=== PATIENT | female | born 1980 | race Caucasian/White ===

== ENCOUNTER → 2021-04-06 10:50 | Outpatient (BNVA) | payer OTHER, SELFPAY | PROVIDERS: Visit Provider Nurse Practitioner Women's Health | DX: R87.610 Atypical squamous cells of undetermined significance on cytologic smear of cervix (ASC-US) (principal); Z01.419 Encounter for gynecological examination (general) (routine) without abnormal findings; Z12.39 Encounter for other screening for malignant neoplasm of breast | CPT/HCPCS: 88175 ==

== ENCOUNTER 2021-07-09 05:27 | Emergency (ER) | payer OTHER, SELFPAY ==
[2021-07-09 05:29] VITALS: BP 157/81; PULSE 95; RESP 18; TEMP 36.9; O2SAT 100; BMI 23.8
--- NOTE | 2021-07-09 05:34 | XRR_ITS ---
PROCEDURE INFORMATION: Exam: XR Soft Tissue Neck Exam date and time: 07/09/2021 5:34 AM Age: 40 years old Clinical indication: Neck pain TECHNIQUE: Imaging protocol: XR of the soft tissues of the neck. COMPARISON: MR head wo con* [id number] 01/11/2018 10:55 AM FINDINGS: Airway: Normal. No abnormal narrowing. Soft tissues: Normal. Normal epiglottis. Bones/joints: Unremarkable. XR/XR soft tissue neck [id number] IMPRESSION: No acute findings.
--- NOTE | 2021-07-09 05:35 | W.ED.URI ---
HPI - URI/Sore Throat General: Chief Complaint: Upper Respiratory Infection Stated Complaint: THROAT SWELLING Time Seen by Provider: 07/09/21 05:34 Source: patient and EMS Mode of arrival: EMS Limitations: no limitations History of Present Illness: HPI Narrative: 40-year-old female states that she had a slight sore throat over the last day. She states that she took ibuprofen this morning at 4 AM and felt the pill got stuck in its caused to have worsening pain. States pain is actually improved now but her throat feels dry. She denies any fever. She denies any vomiting or diarrhea. Denies any difficulty breathing. Associated symptoms: Deny abdominal pain, chills, chest pain, diarrhea, fever(s), headache(s), nausea or vomiting Review of Systems Const: Denies: fever(s), chills, body aches or change in appetite Eyes: Denies: blurry vision or eye discomfort ENMT: Reports: throat pain Card: Denies: chest pain Resp: Denies: dyspnea GI: Denies: abdominal pain, nausea, vomiting or diarrhea : Denies: dysuria Musc: Denies: neck pain or back pain Skin/Breast: Denies: rash Neuro: Denies: headache(s) Psych: Denies: depression Mikel/Lymph: Denies: easy bruising All/Imm: Denies: urticaria PFSH ED PFSH: Medical History History of pre-eclampsia in 2 previous pregnancies No pertinent past medical history denies hx: htn, thyroid, dm, DVT/PE PCP: Clare Chaparro Surgical History No pertinent past surgical history Family History Father Thyroid disease Stroke Mother Diabetes Denies family history of Colon cancer Ovarian cancer Heart disease Hypercholesteremia Breast cancer Hypertension Uterine cancer Female Reproductive History: Date of last menstrual period: 07/09/21 Physical Exam Const: COMMON NORMALS: no acute distress, patient oriented x3 and healthy appearing HENMT: COMMON NORMALS: normocephalic and atraumatic HEAD & SCALP: normocephalic and atraumatic OTHER: There is clear with no erythema or signs of abscess no uvular deviation. Patient is having no problems handling her secretions. Neck exam has no masses or lymphadenopathy Eye: COMMON NORMALS: Equal, round and reactive pupils present and EOMs intact bilaterally PUPIL: Yes Equal, round and reactive pupils present Neck/C-Spine: COMMON NORMALS: full ROM and supple Chest: COMMONS NORMALS: normal inspection of the chest and normal palpation of entire chest wall Resp: COMMON NORMALS: normal respiratory effort, No retractions, No use of accessory muscles and clear to auscultation bilaterally AUSCULTATION: clear to auscultation bilaterally Cardio: COMMON NORMALS: regular rate, regular rhythm and No murmurs present (Cardio) RATE: regular rate RHYTHM: regular rhythm GI: COMMON NORMALS: Normal to inspection, nondistended, normoactive bowel sounds present, Soft to palpation, non-tender and no masses PALPATION: Yes Soft to palpation Extremity: COMMON NORMALS: normal to inspection and full ROM Neuro: COMMON NORMALS: patient oriented x3, moves all extremities and no focal motor deficits Psych: COMMON NORMALS: mental status grossly normal, Normal thought process present and cooperative THOUGHT PROCESS: Normal thought process present Skin: COMMON NORMALS: no rashes or lesions noted and no wounds GENERAL SKIN EXAM: no rashes or lesions noted Course Vital Signs: Vital signs: Vital Signs Temperature 98.4 F 07/09/21 05:55 Pulse Rate 79 07/09/21 05:55 Respiratory Rate 18 07/09/21 05:55 Blood Pressure 133/78 07/09/21 05:55 Pulse Oximetry 97 07/09/21 05:55 MDM - URI/Sore Throat MDM Narrative: Medical decision making narrative: Patient presents here with sore throat along with likely esophagitis. She is well-appearing here has no signs of abscess or strep. Patient feels improved and is stable for discharge. She is return for worsening and follow-up with her PCP in 3 to 5 days. Discharge Plan Discharge Patient Disposition: Home Clinical Impression: Throat pain, Esophagitis Condition: Stable Prescriptions: New Naprosyn 500 mg tablet 500 mg PO BID PRN (Reason: pain) Qty: 20 RF: 0 No Action hydroxyzine HCl 25 mg tablet 50 mg PO .h.s. PRNRF: 0 Discharge Orders: Discharge ED (Routine); Ordered 07/09/21 Ordered By: Korby Nory Discharge Diet: Advance as tolerated Discharge Activity: Resume usual activity Patient Instructions: Pharyngitis (ED) Coding Level of Care Code ED Guest Relation Officer for Jana Fwd Exam Comprehensive
[2021-07-09] MEDS: lidocaine 2% viscous 15 ML, aluminum-mag hydrox-simethicon 30 ML, sucralfate oral liq 1 GM PO (05:39)
[2021-07-09 05:45] VITALS: BP 133/78; PULSE 79; RESP 18; O2SAT 97
[2021-07-09 05:53] VITALS: BP 137/80; PULSE 82; RESP 16; O2SAT 98
[2021-07-09 05:55] VITALS: BP 133/78; PULSE 79; RESP 18; TEMP 36.9; O2SAT 97
== END 2021-07-09 05:59 | disposition home or self-care (01) ==
PROVIDERS: Emergency Provider Emergency Medicine
DX: K20.90 Esophagitis, unspecified without bleeding (principal)
CPT/HCPCS: 70360; 99283

== ENCOUNTER → 2021-08-22 08:32 | Outpatient (BNVA) | payer OTHER, SELFPAY | PROVIDERS: Visit Provider Dermatology | DX: Z13.9 Encounter for screening, unspecified (principal) ==

== ENCOUNTER 2021-09-18 08:39 | Outpatient (CLI) | payer OTHER, SELFPAY ==
--- NOTE | 2021-09-18 09:10 | FL_ITS ---
WS: [id number] DOUBLE CONTRAST UPPER GI EXAMINATION HISTORY: R13.10 - Dysphagia, unspecified COMPARISON: None available. FLUOROSCOPY TIME: 1.3 minutes. English Composition Teacher film reveals normal distribution of gas throughout the GI tract. No suspicious masses or calcif ications. Barium mixture traversed normally throughout the esophagus. No filling defects within the stomach. Du odenal bulb was normally distensible and pliable. No gastroesophageal reflux No hiatal hernia was demonstrated on this exam. FL/FL upper GI w air* [id number] IMPRESSION: Normal upper GI examination.
== END 2021-09-18 08:40 | disposition home or self-care (01) ==
PROVIDERS: Visit Provider Surgery
DX: R13.10 Dysphagia, unspecified (principal)
CPT/HCPCS: 74246

== ENCOUNTER 2021-10-18 10:02 | Day surgery (SDC) | payer OTHER, SELFPAY ==
[2021-10-16 13:31] VITALS: BMI 22.8
--- NOTE | 2021-10-18 10:55 | W.PM.OPSFHP ---
Same Day Surgery H&P Indication for Procedure/HPI DATE OF PROCEDURE: October 18, 2021 CHIEF COMPLAINT/INDICATIONFOR SURGICAL PROCEDURE: Problem with swallowing PREOP DIAGNOSIS: Difficulty in swallowing PLANNED PROCEDRUE: Operation Date: 10/18/21 11:30 Proposed Procedures p EGD 85791 R13.10(Not Applicable) - Thee Lange MD 08/24/21 This is a pleasant 40 years old female patient referred to my practice with history of episodes of choking on and off, patient was seen by ENT service and was told that she has pharyngitis unlikely she does have an underlying acid reflux disease. She was placed on PPI therapy about 5 weeks now. Patient reports no previous history of such issues. X-ray of the neck was done and showed ; FINDINGS: Airway: Normal. No abnormal narrowing. Soft tissues: Normal. Normal epiglottis. Bones/joints: Unremarkable. XR/XR soft tissue neck [id number] IMPRESSION: No acute findings. Interim history 10/18/2021 Patient comes today for diagnostic EGD, Patient undergone upper GI study that showed normal examination ROS All systems have been reviewed negative except as per the above or per problem list Medications/Allergies* Home Medications Medication Instructions Recorded Confirmed Type hydroxyzine HCl 25 mg tablet 50 mg PO .h.s. PRN tab 04/06/21 10/16/21 History omeprazole 20 mg PO DAILY 10/16/21 10/16/21 History Allergies/Adverse Reactions Allergy/AdvReac Type Severity Reaction Status Date / Time No Known Allergies Allergy Verified 10/18/21 10:57 Pertinent History/Comorbid Conditions* Medical History (Updated 08/25/21 @ 17:47 by Thee Lange MD) History of pre-eclampsia in 2 previous pregnancies No pertinent past medical history denies hx: htn, thyroid, dm, DVT/PE PCP: Clare Chaparro Surgical History (Updated 04/06/21 @ 10:39 by Stephanie Roberts APN, MEGAN) No pertinent past surgical history Family History (Updated 04/06/21 @ 10:17 by Peyton Kaur LPN) Diabetes Mother Thyroid disease Father Stroke Father Denies family history of Colon cancer Ovarian cancer Heart disease Hypercholesteremia Breast cancer Hypertension Uterine cancer Social History Smoking and tobacco status: never smoked Pertinent Exam Findings alert, oriented x 3, clear to auscultation bilaterally and procedure specific exam findings (Abdominal examination nontender nondistended soft) Recommendations Surgery/Procedure today (Diagnostic EGD with possible biopsy) Coding Level of Care Code Acute Financial Counselor for [facility] Fwd
--- NOTE | 2021-10-18 10:57 | ANES.PREANE2 ---
Pre-Anesthetic Assessment Pre-Anesthetic Assessment: Height/Weight: Height 1.73 m Weight 68.039 kg Preop Diagnosis: Difficulty in swallowing Proposed Procedure: Operation Date: 10/18/21 11:30 Proposed Procedures p EGD 40867 R13.10(Not Applicable) - Thee Lange MD Was Beta Deejay taken within 24 hours: N/A Was Clonidine taken within 24 hours: N/A Social: Social History: No alcohol and No tobacco Exam: Pre-Anes Outpt Exam: alert, oriented x 3, clear to auscultation bilaterally and regular rate & rhythm Airway: Submandibular: WNL Cervical ROM: WNL MP: 2 Dentition: Full GI: GI: GERD Anesthetic Plan: ASA status: 2 Anesthesia: MAC Risk of > 500 ml blood loss (7ml/kg in children): No PFSH Anesthesia PFSH: Medical History History of pre-eclampsia in 2 previous pregnancies No pertinent past medical history denies hx: htn, thyroid, dm, DVT/PE PCP: Clare Chaparro Surgical History No pertinent past surgical history Family History Father Thyroid disease Stroke Mother Diabetes Denies family history of Colon cancer Ovarian cancer Heart disease Hypercholesteremia Breast cancer Hypertension Uterine cancer Social History Smoking and tobacco status: never smoked Female Reproductive History: Date of last menstrual period: 07/09/21 Data Anesthesia Cardiac Studies: No Data to Display
[2021-10-18 11:13] VITALS: BP 141/85; PULSE 66; RESP 18; TEMP 36.5; O2SAT 99
[2021-10-18] MEDS: sodium chloride 0.9% 1,000 ML 30 ML IV (11:28)
[2021-10-18 11:35] LABS: OR HCG Qualitative Urine Negative (Negative)
[2021-10-18 12:46] VITALS: BP 110/64; PULSE 68; RESP 16; TEMP 36.2; O2SAT 99
[2021-10-18 13:01] VITALS: BP 117/78; PULSE 58; RESP 17; O2SAT 100
--- NOTE | 2021-10-18 14:47 | ANE.PACU2 ---
Inpatient post-anesthesia follow up: Airway intact: Yes Vital signs: Temperature 97.1 F Pulse Rate 58 Respiratory Rate 17 Blood Pressure 117/78 Pulse Oximetry 100 Oxygen Delivery Me thod Room Air Oxygen Flow Rate Fraction of Inspir ed Oxygen Hydration adequate: Yes Nausea and vomiting: No Pain level: 1 Mental status: Baseline
[2021-10-19 09:12] LABS: H. Pylori / CLO Test Negative
== END 2021-10-18 13:10 | disposition home or self-care (01) ==
PROVIDERS: Anesthesiology; PCP Nurse Practitioner Family; Visit Provider Surgery
PROC: 0DJ08ZZ Inspection of Upper Intestinal Tract, Via Natural or Artificial Opening Endoscopic (ICD-10-PCS; CPT 43235; principal; 2021-10-18 11:30)
DX: R13.10 Dysphagia, unspecified (principal); K29.70 Gastritis, unspecified, without bleeding
CPT/HCPCS: 43239; 81025; 84703; 87077; 96360; 96361; J2704; J7030

== ENCOUNTER 2022-07-13 08:08 | Outpatient (CLI) | payer OTHER, SELFPAY ==
--- NOTE | 2022-07-13 08:19 | CT_ITS ---
WS: [id number] CT NECK TECHNIQUE: Contrast-enhanced CT of the neck with coronal and sagittal reformatted images. CLINICAL INFORMATION: DYSPHAGIA,OROPHARYNGEAL PHASE COMPARISON: None. DLP: [address] scans at [facility] use at least one of these dose optimization techniques: automated e xposure control; mA and/or kV adjustment per patient size (includes targeted exams where dose is matc hed to clinical indication); or iterative reconstruction. FINDINGS: Parotid glands are normal. Normal submandibular glands. Mastoid air cells are well aerated. Partially visualized paranasal sinuses are well aerated. Small retention cyst RIGHT maxillary sinus measuring 6 mm. Normal posterior nasopharynx. Normal parapharyngeal fat. Normal palatine tonsils. Some images a re degraded due to beam hardening artifact from dental artifact. No visualized supraglottic or glotti c mass. Normal vallecula and epiglottis. Normal subglottic airway. Ballooning of the RIGHT laryngeal ventricl e with slight ballooning of the RIGHT piriform sinus suspicious for vocal cord paralysis. This can be further evaluated with endoscopy. Lung apices are well aerated. No cervical lymphadenopathy. CT/CT neck w con* [id number] IMPRESSION: 1. Ballooning of the RIGHT laryngeal ventricle with slight dilatation the RIGH T piriform sinus suspicious for RIGHT cord paralysis. This can be further evalu ated with endoscopy. 2. No visualized supraglottic or glottic mass. 3. Visualized upper mediastinum appears normal. 4. No cervical lymphadenopathy. 5. Normal salivary glands. 6. No other remarkable findings.
[2022-07-13] MEDS: iohexol 350 mg/mL 100 mL Btl IV (09:05)
== END 2022-07-13 08:09 | disposition home or self-care (01) ==
PROVIDERS: PCP Nurse Practitioner Family; Visit Provider Specialist
DX: R13.12 Dysphagia, oropharyngeal phase (principal)
CPT/HCPCS: 70491

== ENCOUNTER 2024-04-11 23:18 | Emergency (ER) | payer SELFPAY ==
[2024-04-11 23:36] VITALS: BP 155/85; PULSE 86; RESP 18; TEMP 36.4; O2SAT 99; BMI 25.8
--- NOTE | 2024-04-12 00:08 | XRR_ITS ---
PROCEDURE INFORMATION: Exam: XR Left Finger(s) Exam date and time: 04/12/2024 2:28 AM Age: 43 years old Clinical indication: Injury or trauma; Crushing; Middle finger; Patient HX: Patient sustained a crush injury to distal phalange of left third digit while working with wood building a counter top. ; Additional info: 3rd finger inj TECHNIQUE: Imaging protocol: Radiologic exam of the left fingers. Views: Minimum 2 views. COMPARISON: No relevant prior studies available. FINDINGS: Bones/joints: Normal. No fracture is seen. No dislocation. No soft tissue abnormality. Soft tissues: Normal. XR/XR finger LT min 2V [id number] IMPRESSION: No acute findings.
--- NOTE | 2024-04-12 03:01 | W.ED.EXTPRO ---
HPI - Extremity Problem General: Chief complaint: Extremity Injury, Upper Stated complaint: Left Hand Middle Finger Injury Time Seen by Provider: 04/12/24 02:35 History of Present Illness: 43-year-old female here with a finger injury. Her left middle finger was smashed while remodeling a kitchen. Review of Systems GI: Denies: vomiting PFSH ED PFSH: Medical History (Updated 04/12/24 @ 03:02 by Garret Hodgson DO) Gastritis ASCUS of cervix with negative high risk HPV Insomnia History of pre-eclampsia in 2 previous pregnancies No pertinent past medical history denies hx: htn, thyroid, dm, DVT/PE PCP: Clare Chaparro Surgical History H/O esophagogastroduodenoscopy (~2020) gastritis Family History Father Thyroid disease Stroke Mother Diabetes Denies family history of Colon cancer Ovarian cancer Heart disease Hypercholesteremia Breast cancer Hypertension Uterine cancer Social History Smoking and tobacco/nicotine status: never used tobacco/nicotine Physical Exam Const: COMMON NORMALS: no acute distress GENERAL APPEARANCE: cooperative; not ill appearing Eye: COMMON NORMALS: Equal, round and reactive pupils present and EOMs intact bilaterally PUPIL: Yes Equal, round and reactive pupils present Chest: CHEST: Yes Symmetrical chest wall rise Resp: COMMON NORMALS: normal respiratory effort and No use of accessory muscles Cardio: COMMON NORMALS: regular rate and regular rhythm RATE: regular rate RHYTHM: regular rhythm Extremity: NARRATIVE EXTREMITY EXAM: Fourth finger examination reveals a split through the center of the nail. There is swelling. Small hematoma formation under the nail, leaking around the edge and through the split. No deformity to the finger. Tendon function does appear intact. No significant laceration. Course Vital Signs: Vital signs: Vital Signs Temperature 97.6 F 04/11/24 23:36 Pulse Rate 88 04/12/24 03:25 Respiratory Rate 16 04/12/24 03:25 Blood Pressure 155/85 04/11/24 23:36 Pulse Oximetry 97 04/12/24 03:25 MDM - Extremity (Nontraumatic) Medical Decision Making Tiny tuft fracture on x-ray. Split nail. Bulky dressing. Tetanus shot. Antibiotics. counseled her that as long as pressure can be relieved through split in nail, nail removal is not necessary. She will lose the nail most likely. Close outpt follow up for wound check in a couple of days. Lab Data Radiology Impressions Finger X-Ray 04/12/24 00:08 IMPRESSION: No acute findings. All radiology interpretation(s) finalized by discharge Discharge Plan Discharge Patient Disposition: Home Clinical Impression: Closed fracture of tuft of distal phalanx of finger, Nailbed laceration, finger Condition: Stable Prescriptions: New hydrocodone-acetaminophen 5-325 mg tablet 1 tab PO Q8H PRN (Reason: pain) Qty: 7 0RF cephalexin 500 mg capsule 500 mg PO Q6H 7 Days Qty: 28 0RF No Action hydroxyzine HCl 25 mg tablet 50 mg PO .h.s. PRN (Reason: unknown) Discharge Orders: Discharge ED (Routine); Ordered 04/12/24 Ordered By: Garret Hodgson Referrals: Rosie Chaparro FNP [Primary Care Provider] - 1-3 days Patient Instructions: Finger Fracture (ED), Opioid Safety, Pain Management Activity Restrictions/Additional Instructions: Stay in your bulky dressing to prevent reinjury. Changed twice daily. You may clean with soap and running water. Do not soak. Antibiotics as directed. Ice will help with pain. See your doctor next week. You will likely lose your nail, which should grow back. Return for increasing pain and swelling despite treatment, drainage from nail that is considerable, any other significant symptoms. Coding Level of Care Code ED Radio Division Lieutenant for Jana Irwin
[2024-04-12] MEDS: cephALEXin 500 mg Capsule PO (03:08)
[2024-04-12] MEDS: tetanus-dipt-pertussis 0.5 mL SDV IM (03:08)
[2024-04-12 03:15] VITALS: RESP 16
[2024-04-12] MEDS: oxyCODONE-APAP 5-325 mg Tablet 2 TAB PO (03:15)
--- NOTE | 2024-04-12 03:22 | PC.NURSE ---
PT SENT HOME WITH 1TAB OXYCODONE [address] [place] ORDERS. PT WAS GIVEN ONE OF TWO ORDERED PREVIOUSLY DUE TO MEDICATION FALLING IN THE FLOOR.
[2024-04-12 03:25] VITALS: PULSE 88; RESP 16; O2SAT 97
== END 2024-04-12 03:27 | disposition home or self-care (01) ==
PROVIDERS: Emergency Provider Emergency Medicine; PCP Nurse Practitioner Family
DX: S62.633A Displaced fracture of distal phalanx of left middle finger, initial encounter for closed fracture (principal); S61.313A Laceration without foreign body of left middle finger with damage to nail, initial encounter; X58.XXXA Exposure to other specified factors, initial encounter; Z23 Encounter for immunization
CPT/HCPCS: 73140; 90471; 90715; 99283; A6446

== ENCOUNTER 2024-06-25 23:49 | Emergency (ER) | payer OTHER, SELFPAY ==
[2024-06-25 23:53] VITALS: BP 144/93; PULSE 97; RESP 16; TEMP 36.7; O2SAT 99
--- NOTE | 2024-06-26 | XRR_ITS ---
PROCEDURE INFORMATION: Exam: XR Chest Exam date and time: 06/26/2024 12:16 AM Age: 43 years old Clinical indication: Pain; Other: C/O palpitations; Additional info: Chest pain TECHNIQUE: Imaging protocol: Radiologic exam of the chest. Views: 1 view. COMPARISON: CT neck w con* [id number] 07/13/2022 8:57 AM FINDINGS: Lungs: Unremarkable. No consolidation. Pleural spaces: Unremarkable. No pleural effusion. No pneumothorax. Heart/Mediastinum: Unremarkable. No cardiomegaly. Bones/joints: Unremarkable. XR/XR chest 1V portable [id number] IMPRESSION: No acute findings.
--- NOTE | 2024-06-26 00:07 | ECG_ITS ---
[facility] Test Date: 2024-06-26 Pat Name: Alia John Department: Room: Gender: Female Net Programmer: : 1980 Requested By: Waldemar Hinojosa Order Number: [id number] Sunil MD: Robert Damon M.D. Measurements Intervals [place] Rate: 96 P: 51 DC: 151 QRS: 58 QRSD: 93 T: 51 QT: 345 QTc: 438 Interpretive Statements SINUS RHYTHM WITH OCCASIONAL VENTRICULAR PREMATURE COMPLEXES POSSIBLE RIGHT VENTRICULAR CONDUCTION DELAY [RSR (QR) IN V1/V2] NONSPECIFIC ST & T-WAVE ABNORMALITY No previous ECG available for comparison Electronically Signed On 06-26-2024 1:01:42 CDT by Robert Damon M.D. [email or web address]
[2024-06-26 00:28] LABS: Basophils % 0.3 %; Eosinophils # 0.3 10^3/uL (0.0-0.8); Lymphocytes # 3.3 10^3/uL (0.8-4.8); Lymphocytes % 33.3 %; Mean Corpuscular HGB Conc 31.3 g/dL (30-55); Mean Corpuscular Hemoglobin 26.1 pg (27-33); Mean Corpuscular Volume 83.3 fl (85-98); Mean Platelet Volume 9.6 fL (7.4-10.4); Monocytes # 0.9 10^3/uL (0.2-0.9); Monocytes % 8.8 %; Neutrophils # 5.38 10^3/uL (1.8-7.7); Neutrophils % 54.4 %; Nucleated Red Blood Cells % 0 %; Platelet Count 266 10^3/cmm (157-399); Red Blood Count 4.56 10^6/uL (3.85-5.65); Red Cell Distribution Width 14.8 % (12.1-15.1); White Blood Count 9.89 10^3/uL (3.29-11.43)
[2024-06-26 00:30] VITALS: BP 143/83; PULSE 87; RESP 16; O2SAT 100
--- NOTE | 2024-06-26 00:39 | ED_ITS ---
HPI - Arrhythmia/Palpitations 2 General: Chief Complaint: Arrhythmia/Palpitations Stated Complaint: chest skipping very fast shaky tingling Time Seen by Provider: 06/26/24 00:00 History of Present Illness: Patient presents to the ER with her heart palpitating, skipping beats and shaking and beating very fast. Patient says she when she went to bed she had a fullness in her throat and her heart rate was in the 150s. Patient denies any chest pain at this time. Patient does admit to taking Benadryl. Patient has had this feeling before but never this many beats in a row or never this bad. Review of Systems 2 General: Reports: 10 or more systems reviewed and unremarkable except in HPI and below PFSH ED 2 PFSH: Medical History Gastritis ASCUS of cervix with negative high risk HPV Insomnia History of pre-eclampsia in 2 previous pregnancies No pertinent past medical history denies hx: htn, thyroid, dm, DVT/PE PCP: Clare Chaparro Surgical History H/O esophagogastroduodenoscopy (~2020) gastritis Family History Father Thyroid disease Stroke Mother Diabetes Denies family history of Colon cancer Ovarian cancer Heart disease Hypercholesteremia Breast cancer Hypertension Uterine cancer Social History Smoking and tobacco/nicotine status: never used tobacco/nicotine Physical Exam 2 Const: COMMON NORMALS: no acute distress, average body habitus, patient oriented x3, no limitations, healthy appearing, alert and well nourished HENMT: COMMON NORMALS: normocephalic, atraumatic, hearing grossly normal bilaterally, external ears normal, Normal external nose present and moist oral mucous membranes HEAD & SCALP: normocephalic and atraumatic NOSE: Normal external nose present EXTERNAL EAR: Yes external ears normal Neck/C-Spine: COMMON NORMALS: no JVD Chest: COMMONS NORMALS: normal inspection of the chest and normal palpation of entire chest wall Resp: COMMON NORMALS: normal respiratory effort, No retractions, No use of accessory muscles and clear to auscultation bilaterally AUSCULTATION: clear to auscultation bilaterally Cardio: COMMON NORMALS: no JVD, regular rate, regular rhythm, S1 normal heart sound present, S2 normal heart sound present, No gallops present (Cardio), No clicks present (Cardio), No murmurs present (Cardio) and No rub (Cardio) R ATE: regular rate RHYTHM: regular rhythm HEART SOUNDS: S1 normal heart sound present and S2 normal heart sound present GI: COMMON NORMALS: Normal to inspection, nondistended, normoactive bowel sounds present, Soft to palpation, non-tender, No hepatosplenomegaly present and no masses PALPATION: Yes Soft to palpation and Yes No hepatosplenomegaly present Neuro: COMMON NORMALS: patient oriented x3 SENSORIUM/ORIENTATION: Yes alert Course 2 Vital Signs: Vital signs: Vital Signs Temperature 98.0 F 06/25/24 23:53 Pulse Rate 64 06/26/24 02:00 Respiratory Rate 16 06/26/24 02:00 Blood Pressure 118/78 06/26/24 02:00 Pulse Oximetry 97 06/26/24 02:00 Oxygen Delivery Me thod Room Air 06/25/24 23:53 MDM - Arrhythmia/Palpitations Medical Decision Making Patient was worked up with serial EKGs, cardiac enzymes, chest x-ray, all of which was essentially benign except patient's potassium is low at 3.1. Patient was given 40 mEq potassium p.o. orally and then will be discharged home. Patient to follow-up with her PCP within next 7-10 business days. Differential Diagnosis Likely palpitations Medical Records I reviewed the patient's medical records. Lab Data I reviewed the patient's lab results. 06/26/24 00:18 06/26/24 00:18 Radiology Impressions Chest X-Ray 06/26/24 00:00 IMPRESSION: No acute findings. Laboratory Results WBC 9.89 10^3/uL (3.29-11.43) 06/26/24 00:18 RBC 4.56 10^6/uL (3.85-5.65) 06/26/24 00:18 Hgb 11.90 g/dL (11.27-16.99) 06/26/24 00:18 Hct 38.0 % (36-47) 06/26/24 00:18 MCV 83.3 fl (85-98) L 06/26/24 00:18 MCH 26.1 pg (27-33) L 06/26/24 00:18 MCHC 31.3 g/dL (30-55) 06/26/24 00:18 RDW 14.8 % (12.1-15.1) 06/26/24 00:18 Plt Count 266 10^3/cmm (157-399) 06/26/24 00:18 MPV 9.6 fL (7.4-10.4) 06/26/24 00:18 Neut % (Auto) 54.4 % 06/26/24 00:18 Lymph % (Auto) 33.3 % 06/26/24 00:18 [place] % (Auto) 8.8 % 06/26/24 00:18 Eos % (Auto) 3.0 % 06/26/24 00:18 Baso % (Auto) 0.3 % 06/26/24 00:18 Neut # (Auto) 5.38 10^3/uL (1.8-7.7) 06/26/24 00:18 Lymph # (Auto) 3.3 10^3/uL (0.8-4.8) 06/26/24 00:18 [place] # (Auto) 0.9 10^3/uL (0.2-0.9) 06/26/24 00:18 Eos # (Auto) 0.3 10^3/uL (0.0-0.8) 06/26/24 00:18 Baso # (Auto) 0.0 10^3/uL (0.0-0.1) 06/26/24 00:18 Nucleated RBC % (auto) 0 % 06/26/24 00:18 Nucleated RBCs # 0.0 /100WBC 06/26/24 00:18 Sodium 139 mmol/L (136-145) 06/26/24 00:18 Potassium 3.1 mmol/L (3.5-5.1) L 06/26/24 00:18 Chloride 105 mmol/L (98-107) 06/26/24 00:18 Carbon Dioxide 21 mmol/L (22-29) L 06/26/24 00:18 Anion Gap 16.1 (5-19) 06/26/24 00:18 BUN 8 mg/dL (6-20) 06/26/24 00:18 Creatinine 0.7 mg/dL (0.5-0.9) 06/26/24 00:18 GFR Calculation 91.8 mL/min (90-130) 06/26/24 00:18 Glucose 86 mg/dL (65-115) 06/26/24 00:18 Calculated Osmolality 286 mOsm/kg (285-295) 06/26/24 00:18 Calcium 8.6 mg/dL (8.5-10.5) 06/26/24 00:18 Total Bilirubin 0.2 mg/dL (0.15-1.2) 06/26/24 00:18 AST 16 U/L (0-32) 06/26/24 00:18 ALT 11 U/L (0-33) 06/26/24 00:18 Alkaline Phosphatase 92 U/L (35-105) 06/26/24 00:18 Troponin T Baseline < 6 ng/L (0-10) 06/26/24 00:18 Troponin T 120 Minute 6.00 ng/L (0-10) 06/26/24 01:36 Delta Troponin T 0.64449 ABS# (0-10) 06/26/24 01:36 Total Protein 7.8 g/dL (6.6-8.7) 06/26/24 00:18 Albumin 4.3 g/dL (3.5-5.2) 06/26/24 00:18 Globulin 3.5 g/dL (1.3-4.6) 06/26/24 00:18 All radiology interpretation(s) finalized by discharge Discharge Plan Discharge Patient Disposition: Home Clinical Impression: Palpitations, Acute hypokalemia Condition: Stable Prescriptions: No Action hydroxyzine HCl 25 mg tablet 50 mg PO .h.s. PRN (Reason: unknown) hydrocodone-acetaminophen 5-325 mg tablet 1 tab PO Q8H PRN (Reason: pain) Qty: 7 0RF Discharge Orders: Discharge ED (Routine); Ordered 06/26/24 Ordered By: Waldemar Hinojosa Referrals: Rosie Chaparro FNP [Primary Care Provider] - 1 week Patient Instructions: Heart Palpitations, Hypokalemia (ED) Activity Restrictions/Additional Instructions: Your evaluation in ER did not show any acute cardiac cause of your palpitations, chest pain etc. Your potassium was mildly low at 3.1. You have been given 40 mEq of oral potassium take in ER. Please follow-up with your family practitioner within next 7 to 10 days for further evaluation and treatment. Thank you for choosing [facility] for your healthcare needs today. Please realize that you were seen in the emergency department and that we are providing you with an emergency medical screening exam and this may not be a complete and all exclusive of all testing and/or medical workup we may need to determine your element or severity of your illness. It is very important that you follow-up as instructed with your primary care provider or specialist for the additional evaluation and to discuss your medical treatment plan. You may return to the emergency department should you have concerns or if your condition changes or worsens in any way. 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
[2024-06-26 00:47] LABS: Alanine Aminotransferase 11 U/L (0-33); Albumin Level 4.3 g/dL (3.5-5.2); Alkaline Phosphatase 92 U/L (35-105); Anion Gap 16.1 (5-19); Aspartate Amino Transferase 16 U/L (0-32); Blood Urea Nitrogen 8 mg/dL (6-20); Calcium 8.6 mg/dL (8.5-10.5); Carbon Dioxide 21 mmol/L (22-29); Chloride 105 mmol/L (98-107); Creatinine Clr Calc Pharmacy 115.8458; Globulin 3.5 g/dL (1.3-4.6); Glomerular Filtration Rate 91.8 mL/min (90-130); Glucose 86 mg/dL (65-115); Osmolality Calculated 286 mOsm/kg (285-295); Potassium 3.1 mmol/L (3.5-5.1); Sodium 139 mmol/L (136-145); Total Bilirubin 0.2 mg/dL (0.15-1.2); Total Protein 7.8 g/dL (6.6-8.7)
[2024-06-26 00:54] LABS: Troponin(5th) Baseline < 6 ng/L (0-10)
[2024-06-26 01:00] VITALS: BP 129/85; PULSE 73; RESP 18; O2SAT 99
[2024-06-26 01:32] VITALS: BP 125/76; PULSE 72; RESP 16; O2SAT 99
--- NOTE | 2024-06-26 01:57 | ECG_ITS ---
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 Measurements Intervals [place] Rate: 70 P: 55 UT: 146 QRS: 59 QRSD: 88 T: 59 QT: 381 QTc: 413 Interpretive Statements SINUS RHYTHM WITH SINUS ARRHYTHMIA Compared to ECG 06/26/2024 00:07:00 Ventricular premature complex(es) no longer present T-wave abnormality no longer present Electronically Signed On 06-26-2024 9:18:55 CDT by Robert Damon M.D. [id number]
[2024-06-26 02:00] VITALS: BP 118/78; PULSE 64; RESP 16; O2SAT 97
[2024-06-26 02:04] LABS: Troponin 5 2HR Delta 0.00001 ABS# (0-10)
[2024-06-26] MEDS: potassium chloride ER 20 mEq Tablet 40 MEQ PO (02:19)
== END 2024-06-26 02:22 | disposition home or self-care (01) ==
PROVIDERS: Emergency Provider Emergency Medicine; PCP Nurse Practitioner Family
DX: R00.2 Palpitations (principal); E87.6 Hypokalemia
CPT/HCPCS: 71045; 80053; 84484; 85025; 93005; 99285

== ENCOUNTER 2025-02-02 08:31 | Emergency (ER) | payer OTHER, SELFPAY ==
--- NOTE | 2025-02-02 08:39 | XRR_ITS ---
PROCEDURE INFORMATION: Exam: XR Chest Exam date and time: 02/02/2025 8:44 AM Age: 44 years old Clinical indication: Cough and dyspnea; Additional info: Dyspnea/cough TECHNIQUE: Imaging protocol: Radiologic exam of the chest. Views: 1 view. COMPARISON: CR XR chest 1V portable [id number] 06/26/2024 12:16 AM FINDINGS: Lungs: Unremarkable. No consolidation. Pleural spaces: Unremarkable. No pleural effusion. No pneumothorax. Heart/Mediastinum: Unremarkable. No cardiomegaly. Bones/joints: Unremarkable. XR/XR chest 1V portable [id number] IMPRESSION: No acute findings.
--- NOTE | 2025-02-02 08:39 | ECG_ITS ---
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
[2025-02-02 09:09] VITALS: BP 155/79; PULSE 85; TEMP 36.7; O2SAT 100; BMI 27.3
[2025-02-02 09:16] LABS: Basophils % 0.4 %; Eosinophils # 0.3 10^3/uL (0.0-0.8); Eosinophils % 3.8 %; Hematocrit 40.3 % (36-47); Lymphocytes # 2.6 10^3/uL (0.8-4.8); Lymphocytes % 32.5 %; Mean Corpuscular HGB Conc 31.8 g/dL (30-55); Mean Corpuscular Hemoglobin 26.7 pg (27-33); Mean Platelet Volume 9.6 fL (7.4-10.4); Monocytes # 0.7 10^3/uL (0.2-0.9); Monocytes % 8.4 %; Neutrophils # 4.43 10^3/uL (1.8-7.7); Neutrophils % 54.7 %; Nucleated Red Blood Cells % 0 %; Platelet Count 314 10^3/cmm (157-399); Red Cell Distribution Width 15.1 % (12.1-15.1)
[2025-02-02 09:37] LABS: Alanine Aminotransferase 14 U/L (0-33); Albumin Level 4.9 g/dL (3.5-5.2); Alkaline Phosphatase 90 U/L (35-105); Anion Gap 16.4 (5-19); Aspartate Amino Transferase 21 U/L (0-32); Blood Urea Nitrogen 12 mg/dL (6-20); Calcium 9.2 mg/dL (8.5-10.5); Carbon Dioxide 23 mmol/L (22-29); Chloride 104 mmol/L (98-107); Creatinine Clr Calc Pharmacy 101.6294; Globulin 3.4 g/dL (1.3-4.6); Glomerular Filtration Rate 78.3 mL/min (90-130); Glucose 95 mg/dL (65-115); Osmolality Calculated 290 mOsm/kg (285-295); Potassium 3.4 mmol/L (3.5-5.1); Sodium 140 mmol/L (136-145); Total Bilirubin 0.4 mg/dL (0.15-1.2); Total Protein 8.3 g/dL (6.6-8.7)
[2025-02-02 09:38] LABS: Alcohol Level < 10 mg/dL (0-10)
[2025-02-02 09:47] VITALS: BP 144/84; PULSE 86; O2SAT 99
[2025-02-02 09:53] VITALS: BP 149/79; BP 149/89; BP 166/81; PULSE 88; PULSE 93; PULSE 95
--- NOTE | 2025-02-02 10:02 | ED_ITS ---
HPI - General Adult 2 General: Chief complaint: Arrhythmia/Palpitations Stated complaint: weakness (might pass out) Time Seen by Provider: 02/02/25 08:37 Source: patient Mode of arrival: ambulatory Limitations: no limitations History of Present Illness: 44-year-old female presents to the ER wi th complaints of intermittent palpitations. Patient has no significant medical history. Patient states she had an episode of palpitations this morning during a work meeting that lasted about 5 minutes. Patient states she felt lightheaded, dizzy, and her head felt full but not painful. She states she laid down for a little while and felt better. No LOC, nausea, vomiting. Patient currently does not take anything for these episodes. Patient was seen in the ER 7-8 months ago for a similar complaint. She has had countless identical episodes since then but does feel like frequency is increasing to now reporting an episode every other day to daily. Still only lasting 5 minutes or so-feels like heart is flip flopping . Patient denies any illicit drug use, alcohol misuse, increased caffeine intake, increased energy drink intake. Patient denies increased stress/anxiety at work or home. Patient denies any significant family history of arrhythmias or cardiac issues. At time of my examination, patient is completely asymptomatic. States she never followed up with PCP following ER visit back in June. Onset (ago): month(s) Location: chest Radiation: non-radiation Severity: moderate Pain Consistency: intermittent Relieving factors: rest Exacerbating factors: none Associated symptoms: Reports palpitations; Deny chest pain, confusion, cough, dyspnea, headache(s), nausea, rash, syncope or vomiting Treatments prior to arrival: none Related Data Home Medications ?Medication ?Instructions ?Recorded ?Confirmed No Known Home Medications 02/02/25 0303/26 Allergies Allergy/AdvReac Type Severity Reaction Status Date / Time No Known Allergies Allergy Verified 02/02/25 09:19 Review of Systems 2 Const: Denies: fever(s), chills or body aches Eyes: Denies: change in vision or blurry vision Card: Reports: palpitations and lightheadedness; Denies: chest pain, irregular heart rhythm, edema, swelling of feet/ankles, syncope or orthopnea Resp: Denies: dyspnea GI: Denies: nausea or vomiting Musc: Denies: neck pain, back pain, extremity pain, extremity swelling, joint swelling or joint redness Skin/Breast: Denies: rash Neuro: Reports: dizziness; Denies: headache(s) or confusion Psych: Denies: anxiety or panic attacks PFSH ED 2 PFSH: Medical History Gastritis ASCUS of cervix with negative high risk HPV Insomnia History of pre-eclampsia in 2 previous pregnancies No pertinent past medical history denies hx: htn, thyroid, dm, DVT/PE PCP: Clare Chaparro Surgical History H/O esophagogastroduodenoscopy (~2020) gastritis Family History Father Thyroid disease Stroke Mother Diabetes Denies family history of Colon cancer Ovarian cancer Heart disease Hypercholesteremia Breast cancer Hypertension Uterine cancer Social History Smoking and tobacco/nicotine status: never used tobacco/nicotine Physical Exam 2 Const: COMMON NORMALS: no acute distress, average body habitus, patient oriented x3, no limitations, healthy appearing, alert and well nourished G ENERAL APPEARANCE: cooperative ORIENTATION/CONSCIOUSNESS: Yes awake, Yes oriented to person, Yes oriented to place and Yes oriented to time Eye: COMMON NORMALS: no scleral icterus Neck/C-Spine: COMMON NORMALS: no JVD Chest: COMMONS NORMALS: normal inspection of the chest Resp: COMMON NORMALS: normal respiratory effort and clear to auscultation bilaterally EFFORT & INSPECTION: Yes able to speak in complete sentences A USCULTATION: clear to auscultation bilaterally, no crackles and no rales Cardio: COMMON NORMALS: no JVD, regular rate and regular rhythm RATE: r egular rate RHYTHM: regular rhythm Back/Pelvis: COMMON NORMALS: thoracic and lumbar spine normal to inspection and no thoracic nor lumbar tenderness Extremity: GENERAL: Yes normal exam except as noted Neuro: JASEN COMA SCALE: document GCS findings Jasen coma scale eye opening: Spontaneous Gilbert coma scale verbal response: Orientated Gilbert coma scale motor response: Obey commands Gilbert coma scale total score: 15 COMMON NORMALS: patient oriented x3, moves all extremities, no focal motor deficits, no sensory deficits noted and gait normal SENSORIUM/ORIENTATION: Yes alert, Yes oriented to person, Yes oriented to place and Yes oriented to time Psych: COMMON NORMALS: mental status grossly normal, Normal thought process present, cooperative, normal affect and speech normal ATTITUDE: Yes calm and Yes engaged SPEECH: Yes normal speech THOUGHT PROCESS: Normal thought process present Course 2 Vital Signs: Vital signs: Vital Signs Temperature 98.0 F 02/02/25 09:09 Pulse Rate 93 02/02/25 09:53 Blood Pressure 149/79 02/02/25 09:53 Pulse Oximetry 99 02/02/25 09:47 Oxygen Delivery Me thod Room Air 02/02/25 09:09 MDM - General Adult Medical Decision Making Patient is a very nice 44-year-old female with no known past medical history here for intermittent episodes of palpitations over the past 7 to 8 months. Episodes lasting approximately 5 minutes and always resolve on their own. No obvious contributing factors by history. She has been asymptomatic throughout her emergency stay. Blood work is unremarkable. EKG showing no concerning arrhythmias. She will be set up with an outpatient Holter monitor and will follow-up with cardiology. Medical Records I reviewed the patient's medical records. Lab Data I reviewed the patient's lab results. 02/02/25 08:50 02/02/25 08:50 Radiology Impressions Chest X-Ray 02/02/25 08:39 IMPRESSION: No acute findings. Laboratory Results WBC 8.10 10^3/uL (3.29-11.43) 02/02/25 08:50 RBC 4.80 10^6/uL (3.85-5.65) 02/02/25 08:50 Hgb 12.80 g/dL (11.27-16.99) 02/02/25 08:50 Hct 40.3 % (36-47) 02/02/25 08:50 MCV 84.0 fl (85-98) L 02/02/25 08:50 MCH 26.7 pg (27-33) L 02/02/25 08:50 MCHC 31.8 g/dL (30-55) 02/02/25 08:50 RDW 15.1 % (12.1-15.1) 02/02/25 08:50 Plt Count 314 10^3/cmm (157-399) 02/02/25 08:50 MPV 9.6 fL (7.4-10.4) 02/02/25 08:50 Neut % (Auto) 54.7 % 02/02/25 08:50 Lymph % (Auto) 32.5 % 02/02/25 08:50 [place] % (Auto) 8.4 % 02/02/25 08:50 Eos % (Auto) 3.8 % 02/02/25 08:50 Baso % (Auto) 0.4 % 02/02/25 08:50 Neut # (Auto) 4.43 10^3/uL (1.8-7.7) 02/02/25 08:50 Lymph # (Auto) 2.6 10^3/uL (0.8-4.8) 02/02/25 08:50 [place] # (Auto) 0.7 10^3/uL (0.2-0.9) 02/02/25 08:50 Eos # (Auto) 0.3 10^3/uL (0.0-0.8) 02/02/25 08:50 Baso # (Auto) 0.0 10^3/uL (0.0-0.1) 02/02/25 08:50 Nucleated RBC % (auto) 0 % 02/02/25 08:50 Nucleated RBCs # 0.0 /100WBC 02/02/25 08:50 Sodium 140 mmol/L (136-145) 02/02/25 08:50 Potassium 3.4 mmol/L (3.5-5.1) L 02/02/25 08:50 Chloride 104 mmol/L (98-107) 02/02/25 08:50 Carbon Dioxide 23 mmol/L (22-29) 02/02/25 08:50 Anion Gap 16.4 (5-19) 02/02/25 08:50 BUN 12 mg/dL (6-20) 02/02/25 08:50 Creatinine 0.8 mg/dL (0.5-0.9) 02/02/25 08:50 GFR Calculation 78.3 mL/min (90-130) L 02/02/25 08:50 Glucose 95 mg/dL (65-115) 02/02/25 08:50 Calculated Osmolality 290 mOsm/kg (285-295) 02/02/25 08:50 Calcium 9.2 mg/dL (8.5-10.5) 02/02/25 08:50 Total Bilirubin 0.4 mg/dL (0.15-1.2) 02/02/25 08:50 AST 21 U/L (0-32) 02/02/25 08:50 ALT 14 U/L (0-33) 02/02/25 08:50 Alkaline Phosphatase 90 U/L (35-105) 02/02/25 08:50 Total Protein 8.3 g/dL (6.6-8.7) 02/02/25 08:50 Albumin 4.9 g/dL (3.5-5.2) 02/02/25 08:50 Globulin 3.4 g/dL (1.3-4.6) 02/02/25 08:50 TSH 3.24 uIU/mL (0.27-4.20) 02/02/25 08:50 Urine Color Yellow (Yellow) 02/02/25 10:18 Urine Appearance Clear (CLEAR) 02/02/25 10:18 Urine pH 6.0 (5-7) 02/02/25 10:18 Ur Specific [place] 1.012 (1.005-1.030) 02/02/25 10:18 Urine Protein Negative (Negative) 02/02/25 10:18 Urine Glucose (UA) Negative (Normal) 02/02/25 10:18 Urine Ketones Negative (Negative) 02/02/25 10:18 Urine Blood 1+ (Negative) A 02/02/25 10:18 Urine Nitrate Negative (Negative) 02/02/25 10:18 Urine Bilirubin Negative (Negative) 02/02/25 10:18 Urine Urobilinogen 0.2 mg/dL (Negative) 02/02/25 10:18 Ur Leukocyte Esterase Negative (Negative) 02/02/25 10:18 Urine RBC 5-10 /hpf (0-2) H 02/02/25 10:18 Urine WBC Rare /hpf (0-5) 02/02/25 10:18 Ur Squamous Epith Cells 0-4 /hpf (0-5) H 02/02/25 10:18 Amorphous Sediment Not Reportable 02/02/25 10:18 Urine Bacteria None /hpf (NONE) 02/02/25 10:18 Urine Opiates Screen Negative ng/mL (Negative) 02/02/25 10:18 Ur Barbiturates Screen Negative ng/mL (Negative) 02/02/25 10:18 Ur Phencyclidine Scrn Negative ng/mL (Negative) 02/02/25 10:18 Ur Amphetamines Screen Negative ng/mL (Negative) 02/02/25 10:18 U Benzodiazepines Scrn Negative ng/mL (Negative) 02/02/25 10:18 Urine Cocaine Screen Negative ng/mL (Negative) 02/02/25 10:18 U Marijuana (THC) Screen Negative ng/mL (Negative) 02/02/25 10:18 Ethyl Alcohol < 10 mg/dL (0-10) 02/02/25 08:50 All radiology interpretation(s) finalized by discharge Discharge Plan Discharge Patient Disposition: Home Clinical Impression: Palpitations Condition: Stable Prescriptions: No Action No Known Home Medications Discharge Orders: Discharge ED (Routine); Ordered 02/02/25 Ordered By: Rosa Maria Alicea Referrals: Rosie Chaparro FNP [Primary Care Provider] - Patient Instructions: Heart Palpitations (DC) Activity Restrictions/Additional Instructions: As we discussed, your blood work here was unremarkable. Potassium was scantly low at 3.4. You were given oral potassium prior to discharge. Remainder of ED workup was nonactionable. Your EKGs showing no concerning arrhythmias. You have been asymptomatic throughout your emergency stay. I will have case management set you up with a Holter monitor and follow-up with cardiology for further evaluation. 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
--- NOTE | 2025-02-02 10:05 | PC.PHAR ---
Addendum entered by Hallie Decker 02/02/25 10:08: No rx at [facility] either. Original Note: Pt states she has been taking Diclofenac for back pain and took this morning. No rx found at [facility]. Pt states she uses [facility].
[2025-02-02 10:27] LABS: Bilirubin Urine Negative (Negative); Blood Urine 1+ (Negative); Glucose Urine UA Negative (Normal); Ketones Urine Negative (Negative); Leukocyte Esterase Urine Negative (Negative); Nitrate Urine Negative (Negative); Protein Urine Negative (Negative); Specific Gravity, Urine 1.012 (1.005-1.030); Urine Appearance Clear (CLEAR); Urine Color Yellow (Yellow); Urobilinogen Urine 0.2 mg/dL (Negative)
[2025-02-02] MEDS: potassium chloride ER 20 mEq Tablet 40 MEQ PO (10:35)
[2025-02-02 10:37] LABS: Amphetamines Screen Urine Negative (Negative); Barbiturates Screen Urine Negative (Negative); Benzodiazepines Screen Urine Negative (Negative); Cocaine Screen Urine Negative (Negative); Opiate Screen Urine Negative (Negative); PCP Screen Urine Negative (Negative); THC Screen Urine Negative (Negative)
[2025-02-02 10:38] LABS: UA Manual Slide Review YES
--- NOTE | 2025-02-02 10:44 | ECG_ITS ---
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
[2025-02-02 10:51] LABS: Add Urine Microscopic? YES; Squamous Epithelial Cell Urine 0-4 /hpf (0-5); WBC Urine RARE /hpf (0-5)
[2025-02-02 10:52] LABS: Add Urine Culture? No
[2025-02-02 10:52] LABS: Thyroid Stimulating Hormone 3.24 uIU/mL (0.27-4.20)
--- NOTE | 2025-02-02 10:58 | DCPLANNER ---
Message sent to [id number]-dwyl-old female presents to the ER with complaints of intermittent palpitations. Patient has no significant medical history. Patient states she had an episode of palpitations this morning during a work meeting that lasted about 5 minutes. Patient states she felt lightheaded, dizzy, and her head felt full but not painful.
[2025-02-02 11:14] VITALS: BP 132/76; PULSE 71; PULSE 76; O2SAT 98
== END 2025-02-02 11:17 | disposition home or self-care (01) ==
PROVIDERS: Family Medicine; Emergency Provider Physician Assistant; PCP Nurse Practitioner Family
DX: R00.2 Palpitations (principal)
CPT/HCPCS: 36415; 71045; 80053; 80306; 80307; 81001; 84443; 85025; 93005; 99285

== ENCOUNTER 2025-05-20 09:15 | Outpatient (CLI) | payer OTHER, SELFPAY ==
--- NOTE | 2025-05-20 09:15 | USCV_ITS ---
Alia John Age: 44 Gender: F : 1980 Exam Date: 05/20/2025 09:53 Ordering Phys: Lyndon Hernandez M.D ([email or web address]) Technologist: ERMELINDA [place] [facility] [place]: SoB BP: 118 / 72 HR: 62 Rhythm: Sinus Technical Quality: Adequate MEASUREMENTS (Male / Female) Normal Values 2D ECHO LV Diastolic Diameter PLAX 5.1 cm 4.2 - 5.9 / 3.9 - 5.3 cm IVS Diastolic Thickness 1.1 cm 0.6 - 1.0 / 0.6 - 0.9 cm IVS Systolic Thickness 1.2 cm LVPW Diastolic Thickness 1.3 cm 0.6 - 1.0 / 0.6 - 0.9 cm LVPW Systolic Thickness 1.6 cm LVOT Diameter 2.0 cm LV Ejection Fraction 2D Teich 59.8 % LV Ejection Fraction MOD 4C 76.6 % LV Ejection Fraction MOD 2C 70.3 % LV Ejection Fraction 2C AL 72.1 % LA Diameter 2.6 cm RA Systolic Volume 4C AL 17.7 ml RA Systolic Volume 4C MOD 17.9 ml LA Sys Volume AL 28.9 cm cubed LA Sys Volume Index AL 14.5 cm cubed/m squared Aorta at Sinotubular Diameter 2.5 cm IVC Diameter 1.8 cm M-MODE LA Ao Ratio MM 1.3 AV Cusp Separation MM 1.5 cm DOPPLER AV Peak Velocity 114.0 cm/s LVOT Peak Velocity 81.0 cm/s AV Area Cont Eq vti 2.3 cm squared AV Area Cont Eq pk 2.2 cm squared MV Peak Velocity 119.0 cm/s MV Area PHT 4.7 cm squared Mitral E to A Ratio 1.5 TR Peak Velocity 82.0 cm/s TR Peak Gradient 2.7 mmHg TV Peak E Velocity 79.0 cm/s PV Peak Velocity 104.0 cm/s FINDINGS Left Ventricle Left ventricular is normal size. LV systolic function is normal with EF of 55-60%. No regional wall abnormalities are seen. Right Ventricle Normal in size and function Right Atrium Normal in size Left Atrium Normal in size Mitral Valve Structurally normal mitral valve. Trace mitral regurgitation. Aortic Valve Structurally normal aortic valve. No significant stenosis or regurgitation Tricuspid Valve Insufficient TR jet to evaluate RVSP Pulmonic Valve Not well visualized Pericardium Normal Aorta Normal in size IVC Appears to be normal CONCLUSIONS LV systolic function is normal with EF of 55-60% Trace mitral regurgitation No comparison studies are available. Lyndon Hernandez MD (Electronically Signed) Final Date: 30 May 2025 16:06 S
== END 2025-05-20 09:16 | disposition home or self-care (01) ==
LOC: RAD 09:18
PROVIDERS: PCP Nurse Practitioner Family; Visit Provider Internal Medicine
DX: R06.02 Shortness of breath (principal)
CPT/HCPCS: 93306